=== PATIENT | male | born 1980 ===

== ENCOUNTER 2017-09-04 12:37 | Emergency (ER) | payer BC ==
[2017-09-04 14:02] VITALS: BP 120/68
[2017-09-04] MEDS ORDERED: Amoxicillin/Clavulanate TAB* 875 MG PO ONE (14:14)
[2017-09-04] MEDS ORDERED: Tetan/Diph/Pertus SYR(Tdap)* 0.5 ML SYR(BOOSTRIX) use SYR IM ONE (14:15)
--- NOTE | 2017-09-04 14:16 | UC ---
Vin Rios Tenzin, scribed for Zuleika Dumas MD on 09/04/17 at 1406 . Bite Injury/Animal HPI - HPI Summary HPI Summary: Pt is a 37 years old male presenting to the complaining of a dog bite today at 10:30 while he was biking. Pt notes that the dog "nib him on his left calf". He contacted the health department to make sure the dog was vaccinated. They are investigated - RN spoke with health dept - no rabies vaccine/IG now. Pt cleansed with soap and water. minimal discomfort. Unknown last tdap. No analgesia taken. No leg weakness, paresthesia. He is not on any medications. Pt denies any other health concerns. No aggravating or alleviating factors were noted. He is checking on his most recent tetanus shots. He is not allergic to any medications. He teaches at [employer]. Not immunocompromised Pt's medications reviewed this visit - History of Current Complaint Chief Complaint: UCBiteInjury Stated Complaint: DOG BITE Time Seen by Provider: 09/04/17 13:48 Hx Obtained From: Patient Pain Intensity: 0 Onset/Duration: Sudden Onset - Today at 10:30 Type of Bite: Pet - Dog Aggravating Factor(s): Nothing Alleviating Factor(s): Nothing - Allergies/Home Medications Allergies/Adverse Reactions: Allergies Allergy/AdvReac Type Severity Reaction Status Date / Time No Known Allergies Allergy Verified 09/04/17 13:52 PMH/Surg Hx/FS Hx/Imm Hx - Additional Past Medical History Additional PMH: NEGATIVE: AK, CVA. Previously Healthy: Yes - Surgical History Surgical History: None - Family History Known Family History: Positive: Other - Pt denies any relevant family history. - Social History Occupation: Employed Full-time Lives: With Family Alcohol Use: None Substance Use Type: None Smoking Status (MU): Never Smoked Tobacco Review of Systems Constitutional: Negative Skin: Other - superficial and broken skin from a dog bite. Eyes: Negative ENT: Negative Respiratory: Negative Cardiovascular: Negative Gastrointestinal: Negative Genitourinary: Negative Motor: Negative Neurovascular: Negative Musculoskeletal: Negative Neurological: Negative Psychological: Negative All Other Systems Reviewed And Are Negative: Yes Physical Exam - Summary Physical Exam Summary: Vital Signs Reviewed: Yes A+Ox3, no distress Eyes: Conjunctiva Clear ENT: Hearing grossly normal neck: supple Respiratory: Positive: No respiratory distress, No accessory muscle use Cardiovascular: skin color reflect adequate perfusion 2+ DP PT CBT < 2 sec Musculoskeletal Exam: DOUGLASS x 4 without difficulty + flex/ext knee, ankle, great toe Neurological: Positive: Alert, ambulatory without difficulty Psychological: Positive: Normal Response To Family Skin: Positive: non-suturable abriason left lateral mid calf no bleeding. no puncture surrounding ecchymosis 3x3cm Triage Information Reviewed: Yes Vital Signs: Initial Vital Signs Temp 98.9 F 09/04/17 13:52 Pulse 76 09/04/17 13:52 Resp 16 09/04/17 13:52 BP 120/68 09/04/17 13:52 Pulse Ox 96 09/04/17 13:52 Bite Injury Course/Dx - Course Course Of Treatment: Pt with bite wound abraison to left mid calf from this am. not immunocompromised. no discomfort. + tdap. Augmentin BID. motrin/apap. ice x 2 days, heat. elevate. f/u with health dept. wound infection reviewed - Differential Dx/Diagnosis Provider Diagnoses: dog bite wound. contusion Discharge - Sign-Out/Discharge Documenting (check all that apply): Discharge/Admit/Transfer - Discharge Plan Condition: Stable Disposition: HOME Prescriptions: Amoxicillin/Clavulanate TAB* [Augmentin TAB 875*] 875 mg PO BID #14 tab Patient Education Materials: Diphtheria/Pertussis/Tetanus Vaccine (By injection ), Animal Bite (ED) Referrals: Luis Manuel Perez MD [Primary Care Provider] - Additional Instructions: - keep area clean with warm, soapy water 2 times a day - monitor your sound for signs of infection - reddness, red streaking, odor, discharge - okay to alternate ibuprofen (Motrin, Advil) and Tylenol every 3 hours for pain. Take with food. - you will likely have discomfort in your arm from your tetanus vaccination - this is normal - anticipate increased discomfort in your calf over the next 1-2 days - this is normal - slow, gentle stretching of your calf will help with healing - okay to apply ice (Wrapped in a towel) for 20minutes, 2-3 times a day today and tomorrow. Then, change to heat for discomfort - Take antibiotics as prescribed until gone - The health department will follow-up with you regarding the vaccination status of the dog - contact your doctor, return here or go to the emergency department with questions or concerns - Billing Disposition and Condition Condition: STABLE Disposition: Home The documentation as recorded by the Vin norris Tenzin accurately reflects the service I personally performed and the decisions made by me, Zuleika Dumas MD.
== END 2017-09-04 14:40 | disposition home or self-care (01) ==
LOC: UCEAST 12:37
DX: S81.852A Open bite, left lower leg, initial encounter (principal); S80.12XA Contusion of left lower leg, initial encounter; W54.0XXA Bitten by dog, initial encounter; Y93.55 Activity, bike riding; Y92.9 Unspecified place or not applicable
CPT/HCPCS: 90471; 90715; 99202; A9270-GY; G0463